=== PATIENT | male | born 1995 | race Caucasian/White ===

== ENCOUNTER 2017-05-24 16:55 | Emergency (ER) | payer BC ==
[2017-05-24] MEDS ORDERED: HYDROmorphone 2 MG/ML SDV IM ONE (17:12)
[2017-05-24] MEDS ORDERED: Acetaminophen/oxyCODONE 325-5 MG Tab PO ONE (17:16)
[2017-05-24] MEDS ORDERED: Ibuprofen 600 MG Tab PO ONE (17:17)
--- NOTE | 2017-05-24 17:24 | EDM.PDOC ---
ED HPI GENERAL MEDICAL PROBLEM - General Chief Complaint: Lower Extremity Injury/Pain Stated Complaint: LEGS INJURED BY TRACTOR Time Seen by Provider: 05/24/17 17:10 Source of Information: Reports: Patient, Old Records History Limitations: Reports: No Limitations - History of Present Illness INITIAL COMMENTS - FREE TEXT/NARRATIVE: 22 yo male had a tractor accidentally drive over both lower legs before arrival. Was able to walk, but states he has a lot of pain. 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 No blood loss. Onset: Today Onset Date: 05/24/17 Onset Time: 16:15 Duration: Minutes:, Constant Location: Reports: Lower Extremity, Left, Lower Extremity, Right Quality: Reports: Ache Severity: Moderate Improves with: Reports: Rest Worsens with: Reports: Movement Context: Reports: Trauma Associated Symptoms: Reports: No Other Symptoms Treatments [employer]TER: Reports: Other (see below) (none) Review of Systems - Review of Systems Review Of Systems: See Below Constitutional: Reports: No Symptoms Respiratory: Reports: No Symptoms Cardiovascular: Reports: No Symptoms GI/Abdominal: Reports: No Symptoms Genitourinary: Reports: No Symptoms Musculoskeletal: Reports: Leg Pain (bilaterally) Skin: Reports: No Symptoms Neurological: Reports: No Symptoms Psychiatric: Reports: No Symptoms ED EXAM, GENERAL - Physical Exam Exam: See Below Exam Limited By: No Limitations General Appearance: Alert, WD/WN, No Apparent Distress Ears: Normal External Exam, Normal Canal, Hearing Grossly Normal Ear Exam: Bilateral Ear: Auricle Normal, Canal Normal Nose: Normal Inspection, Normal Mucosa, No Blood Throat/Mouth: Normal Inspection, Normal Lips, Normal Teeth Head: Atraumatic, Normocephalic Neck: Normal Inspection, Supple, Non-Tender Respiratory/Chest: No Respiratory Distress, Lungs Clear, Normal Breath Sounds, No Accessory Muscle Use Cardiovascular: Regular Rate, Rhythm Peripheral Pulses: 3+: Popliteal (L), Popliteal (R), Posterior Tibial (L), Posterior Tibial (R), Dorsalis Pedis (L), Dorsalis Pedis (R) GI/Abdominal: Soft, Non-Tender Back Exam: Normal Inspection Extremities: Normal Inspection, Normal Range of Motion, No Pedal Edema, Leg Pain (Both lower legs without visible pathology.) Neurological: Alert, Oriented, Normal Cognition, No Motor/Sensory Deficits Psychiatric: Normal Affect, Normal Mood Skin Exam: Warm, Dry, Intact, Normal Color, No Rash Lymphatic: No Adenopathy Course - Vital Signs Text/Narrative:: Percocet 1 po, ibuprofen 600 mg po Tib/Fib X-ray left-neg Tib/fib X-ray right-neg - Orders/Labs/Meds Orders: Active Orders 24 hr Category Date Time Status Tibia Fibula Lt [CR] Stat Exams 05/24/17 17:17 Taken Tibia Fibula Rt [CR] Stat Exams 05/24/17 17:17 Taken Labs: Laboratory Tests 05/24/17 Range/Units 18:15 Urine Color Yellow (YELLOW) Urine Appearance Clear (CLEAR) Urine pH 5.0 (5.0-6.5) Ur Specific [place] 1.020 (1.010-1.025) Urine Protein Negative (NEGATIVE) mg/dL Urine Glucose (UA) Normal (NEGATIVE) mg/dL Urine Ketones Negative (NEGATIVE) mg/dL Urine Occult Blood Negative (NEGATIVE) Urine Nitrite Negative (NEGATIVE) Urine Bilirubin Negative (NEGATIVE) Urine Urobilinogen Normal (NEGATIVE) mg/dL Ur Leukocyte Esterase Negative (NEGATIVE) Urine RBC 0-5 (0) Urine WBC 0-5 (0) Ur Squamous Epith Cells Moderate H (NS,R,O) Urine Bacteria Few H (NS) Meds: Medications Discontinued Medications Generic Name Dose Route Start Last Admin Trade Name Demetrius PRN Reason Stop Dose Admin Hydromorphone HCl 1 mg 05/24/17 17:12 05/24/17 17:00 Dilaudid IM 05/24/17 17:13 Not Given ONETIME ONE Ibuprofen 600 mg 05/24/17 17:17 Motrin PO 05/24/17 17:18 ONETIME ONE Oxycodone/Acetaminophen 1 tab 05/24/17 17:16 Percocet 325-5 Mg PO 05/24/17 17:17 ONETIME ONE Departure - Departure Time of Disposition: 18:37 Disposition: Home, Self-Care 01 Condition: Good Clinical Impression: Contusion of leg, left Qualifiers: Encounter type: initial encounter Qualified Code(s): S80.12XA - Contusion of left lower leg, initial encounter Contusion of leg, right Qualifiers: Encounter type: initial encounter Qualified Code(s): S80.11XA - Contusion of right lower leg, initial encounter - Discharge Information Referrals: PCP,None [Primary Care Provider] - Forms: ED Return to Work/School Form Additional Instructions: ibuprofen 600 mg every 6 hrs as needed. Add acetaminophen or [place] for added relief. Rest with your legs elevated. Drink ample fluids. Recheck in clinic as needed. - My Orders Last 24 Hours: My Active Orders 05/24/17 17:17 Tibia Fibula Lt [CR] Stat Tibia Fibula Rt [CR] Stat - Assessment/Plan Last 24 Hours: My Active Orders 05/24/17 17:17 Tibia Fibula Lt [CR] Stat Tibia Fibula Rt [CR] Stat
[2017-05-24] MEDS ORDERED: Acetaminophen/HYDROcodone 325-5 MG Tab PO ONE (18:39)
--- NOTE | 2017-05-31 10:29 | CR ---
INDICATION: Injury, both legs run over by a tractor at school. RIGHT LOWER LEG, 2 VIEWS (4 IMAGES): I do not see any fractures identified at this time. No radiopaque foreign body within the soft tissues. JUNE
--- NOTE | 2017-05-31 10:31 | CR ---
INDICATION: Tractor drove over legs at school. LEFT LOWER LEG, 2 VIEWS (4 IMAGES): I do not see any fractures/bony abnormalities or the like. No radiopaque foreign body within the soft tissues. [facility]
== END 2017-05-24 18:45 | disposition home or self-care (01) ==
LOC: FB.ED 16:55
DX: S80.12XA Contusion of left lower leg, initial encounter (principal); S80.11XA Contusion of right lower leg, initial encounter; X58.XXXA Exposure to other specified factors, initial encounter
CPT/HCPCS: 73590; 81001; 99283; A9270